=== PATIENT | male | born 1940 | race African-American/Black ===

== ENCOUNTER → 2017-08-20 | Day surgery (SDC) | payer OTHER, MEDICARE ==
[~2017-08-20] VITALS: Ht 167.6 cm; Wt 77.1 kg
[~2017-08-20] MED LIST: ACTOPLUS MET 11 EAC1 PO; COZAAR100 M1 PO; LIPITOR40 M1 PO; ROXICODONE5 M1 PO; VITAMIN D2000 UNIT PO
--- NOTE | 2017-08-20 18:35 | Operative Report ---
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 It is tennis ball sized. He has some pain on the left but none on the right. He has an incidental finding of a reducible right inguinal hernia and so he presents for robotic repair of both Operative/Procedure Note Note: The patient was taken to the operating room placed on the operating table in supine position. Following awake timeout and underwent uneventful induction of general endotracheal anesthesia. The arms were tucked by his side Venodyne boots in place. He received Kefzol IV prior to skin incision in the anal area had been already shaved in the preoperative holding area. With him asleep the hernias were reducible bilaterally. Interestingly, after reducing a large bulk of the left side there is very there remained a mass that was independently reducible suggesting a pantaloon hernia then prepped widely with DuraPrep draped usual sterile fashion including Ioban. Patient's slight Trendelenburg position. Local anesthetic was infiltrated in the supraumbilical area where a small vertical incision was made and carried down to the fascia. Fascia was opened in the midline to expose the preperitoneal fat and then the peritoneum which was elevated and incised carefully to gain entry safely into the peritoneal cavity. Finger sweep revealed there were no adhesions and a 12 MM aerocele port placed and a pneumoperitoneum achieved. An 8 mm 30 scope was placed and right away we could appreciate bilateral inguinal hernias with a small dimple on the right indirect space and a large cavity with colon exiting it on the left side. No evidence of direct hernias from within. Now placed 28 mm working ports laterally on the left side and a fourth port a millimeter on the right side in line with the supraumbilical aerocele port all after infiltrating local anesthetic. The da [employer] Robot was then docked and we placed the camera in 3 a monopolar mumtaz and 4 a PA in 1 and a bipolar fenestrated and 2. I began by taking down a few adhesions in the left lower quadrant where the colon was tethered to the margin of the internal ring defect. It was clear that this was a large sliding hernia however and that there was no real bowel to just pull out leaving the sac empty. Therefore proceeded with making the peritoneal flap beginning on the right side centimeters up from the top of the internal ring and carrying it across to the midline. Her was a very fatty bulky median umbilical ligament prominent obliterated cultures within it with the cautery down to the level of the fascia and then continued the flap across to the left side being the same distance of about 4 cm from the top of the defect.. I continue to dissected the flap beginning on the right side where the anatomy was easier identifying a small indirect hernia which I easily removed from the internal ring. There was no lipoma. I could see the epigastric vessels well served. In creating the flap more medially I encountered a large abraded fat-containing direct defect. With traction I was able to dissected of the large thumb-sized fat lobule from the confines of these of the direct defect and freed all the attachments off of the margins of the defect and anchored now C the ramus and dissected down to just deep to the right edge of the ramus. The prominent vein from running along the ramus and these were preserved. I carried the dissection over the midline with there were some more fatty adhesions and I cleared these off of the symphysis could be well seen. I now carried the dissection over toward the left side following the ramus and clearing off the peritoneal fat there. Another large direct D defect. I removed another large tongue of preperitoneal fat that was about 3 fingerbreadths wide and about 8 cm long. Pulling this out of the end of the direct space there was a tongue of fat coming from the epigastric vessel fat pad was separate and distinct. This was about thumb sized. Venous a distance from the edge of the epigastrics I amputated this to keep this from falling back into the tract. There was good hemostasis using the cautery to do this. On this side the preperitoneal fat was stuck 180 around the back half of the defect needed to be dissected off all the way down to the ramus clearing in from the ramus as well. Her some attachments on the back of the epigastric vessels which I then took down the internal ring and the large indirect defect. Fourth arm to hold some traction I was able to reduce a large sac in toto apex of it that well down within the internal ring and dissecting it off of the cord safely pulling it out of the internal ring and beyond the point where the vas deviated medially. I cleared off some space laterally to accommodate the mesh had an excellent complete dissection of the internal floor and the myopectineal orifice. I then measured for the mesh and a medium 3-D max mesh was used on each side with excellent coverage. Inferior inset nicely behind the symphysis medially overlapping each other and the inferior inset behind the ramus medially while laterally and tucked in nicely and laterally into the lateral space had been created. I used 2-0 Tycron sutures secured each mesh medially to the muscle and and laterally and then used a single suture through both meshes catching a little bit of the tissue over the symphysis to hold the medial edges in place. I had a small amount of bleeding and placing this last stitch and held some pressure there was good hemostasis. The peritoneal flap with running 20V LOC absorbable sutures and reconstructed the large pendulous fatty and umbilical ligament as well. The amputated fat was then pulled out through the 12 mm port. We undocked the robot and removed the 8 mm ports under direct vision. The pneumoperitoneum was then released and the aerocele port removed. The fascia was closed with 2 [id number] sutures of 0 Vicryl at this site only and then some interrupted 3-0 Vicryl sutures on the subcutaneous followed by 4-0 Monocryl running subcutaneous skin closure. Steri-Strips 4 x 4's and OpSite were placed. The patient tolerated the procedure well and taken to the recovery room in satisfactory condition extubated with all sponge needle and instrument count confirmed as correct 2 at the completion of the case. Findings: Bilateral direct and indirect hernias left greater than right. Left side with colon in the indirect hernia right side indirect small Discharge Disposition: PACU
== END ==
LOC: STS 02:45
DX: K40.20 Bilateral inguinal hernia, without obstruction or gangrene, not specified as recurrent (principal); E11.22 Type 2 diabetes mellitus with diabetic chronic kidney disease; Z79.84 Long term (current) use of oral hypoglycemic drugs; I12.9 Hypertensive chronic kidney disease with stage 1 through stage 4 chronic kidney disease, or unspecified chronic kidney disease; N18.3 Chronic kidney disease, stage 3 (moderate); Z90.5 Acquired absence of kidney; Z87.891 Personal history of nicotine dependence
CPT/HCPCS: C1781; J0131; J0690; J1100; J2250; J2405